=== PATIENT | female | born 1955 | race Caucasian/White ===

== ENCOUNTER → 2017-08-09 | Outpatient (CLI) | payer OTHER ==
[~2017-08-09] MED LIST: CYCL-36 PO; LEVO50TA4 PO; LORTA5 PO
--- NOTE | 2017-08-14 11:48 | RSPPFT ---
DATE OF PROCEDURE: 08/09/17 COMMENTS: Spirometry demonstrates an FEV1 of 1.8 at 80% of predicted, FVC of 2.2 at 81%, FEF 25-75 is 75%. Post-bronchodialtor study demonstrated improvements in the FEV1 and FVC and FEF 25-75. Lung volumes demonstrated no significant abnormalities. Diffusion capacity is mildly reduced but normal when corrected for volume. Flow volume loops appear unremarkable. IMPRESSION: 1. Essentially normal pulmonary function study. 2. Significant response to use of bronchodilator indicating reactive airways. 3. Mild reduction in diffusion capacity.
== END ==
LOC: HRSP 07:48
PROVIDERS: ATTEND Internal Medicine Cardiovascular Disease
DX: R06.02 Shortness of breath (principal)
CPT/HCPCS: 94060; 94726; 94729